=== PATIENT | male | born 1945 | race Caucasian/White ===

== ENCOUNTER 2017-03-21 08:40 | Observation (INO) | payer MEDICARE, BC ==
[~2017-03-21] VITALS: Ht 188 cm; Wt 94.0 kg
[~2017-03-21 08:40] MED LIST: FINA5TAB4 PO; LEVO750T25 PO; SERT-165 PO; TAMS0.4C2 PO
[2017-03-21 08:41] VITALS: Ht 188 cm; Wt 94.0 kg
[2017-03-21] MEDS ORDERED: ONDANSETRON 4 MG INJ IV STA (08:57)
[2017-03-21] MEDS ORDERED: morphine 4 MG/ML VIAL IV STA (08:57)
[2017-03-21] MEDS ORDERED: ACETAMINOPHEN 325 MG TAB PO ONE (09:00)
--- NOTE | 2017-03-21 09:14 | ERA ---
ER Documentation Chief Complaint Date/Time DATE: 03/21/17 TIME: 09:12 Chief Complaint sob since yesterday HPI This is a very pleasant 72-year-old male who presents the emergency room with shortness of breath and chest pain. He describes chest pain to the upper chest just under the sternal notch and he describes it as pleuritic. It started yesterday, slightly gradual in onset and nonmigratory. He notes associated shortness of breath. He was noted to have a low-grade fever upon arrival but denies any cough, nasal congestion. No nausea vomiting or diarrhea, no mid back pain. No recent travel, immobilization or surgery. No family history of DVT or PE. ROS All systems reviewed and are negative except as per history of present illness. Medications Home Meds Reported Medications Meloxicam* (Meloxicam*) 7.5 Mg Tablet, 15 MG PO DAILY, #30 TAB 03/21/17 Sertraline Hcl* (Sertraline Hcl*) 100 Mg Tablet, 100 MG PO DAILY, #30 TAB 07/12/15 Finasteride* (Finasteride*) 5 Mg Tablet, 5 MG PO DAILY, TAB 07/12/15 Tamsulosin Hcl* (Tamsulosin Hcl*) 0.4 Mg Cap.er.24h, 0.4 MG PO DAILY, CAP 07/12/15 Discontinued Scripts Levofloxacin* (Levaquin*) 750 Mg Tablet, 750 MG PO DAILY for 5 Days, TAB Prov:AGUILAR HACKETT 07/18/15 Allergies Allergies: Coded Allergies: No Known Allergy (Unverified , 07/12/15) PMhx/Soc History of Surgery: Yes (R knee sx (15yrs ago); lasik sx, prostate (3yrs ago), eye lid lift) Anesthesia Reaction: Yes Hx Neurological Disorder: Yes Hx Respiratory Disorders: Yes Hx Cardiac Disorders: No Hx Psychiatric Problems: No Hx Miscellaneous Medical Probl: No Hx Alcohol Use: Yes (1 coctail/day) Hx Substance Use: No Hx Tobacco Use: No FmHx Family History: No diabetes Physical Exam Vitals Vital Signs Date Time Temp Pulse Resp B/P Pulse Ox O2 Delivery O2 Flow Rate FiO2 03/21/17 11:01 99.3 03/21/17 08:41 100.5 106 18 133/76 94 Physical Exam General: Well developed, well nourished, no acute distress Head: Normocephalic, atraumatic. Eyes: Pupils equally reactive, EOM intact ENT: Moist mucous membranes Neck: Supple, no lymphadenopathy Respiratory: Lungs clear bilaterally, no distress Cardiovascular: RRR, no murmurs, rubs, or gallops Abdominal: Soft, non-tender, non-distended, no peritoneal signs : Deferred MSK: No edema, no unilateral swelling, 5/5 strength, no pulse deficits Neurologic: Alert and oriented, moving all extremities, normal speech, no focal weakness, no cerebellar signs Skin: No rash Psych: Normal mood Result Diagram: 03/21/17 0903/21/17899 Results 24 hrs Laboratory Tests Test 03/21/17 09:00 03/21/17 09:20 03/21/17 10:43 White Blood Count 9.810^3/ul Red Blood Count 4.9310^6/ul Hemoglobin 15.3g/dl Hematocrit 44.7% Mean Corpuscular Volume 90.7fl Mean Corpuscular Hemoglobin 31.0pg Mean Corpuscular Hemoglobin Concent 34.2g/dl Red Cell Distribution Width 12.2% Platelet Count 55007^3/UL Mean Platelet Volume 10.4fl Neutrophils % 70.9% Lymphocytes % 15.1% Monocytes % 13.3% Eosinophils % 0.2% Basophils % 0.3% Nucleated Red Blood Cells % 0.0/100WBC Neutrophils # 6.910^3/ul Lymphocytes # 1.510^3/ul Monocytes # 1.310^3/ul Eosinophils # 0.010^3/ul Basophils # 0.010^3/ul Nucleated Red Blood Cells # 0.010^3/ul Prothrombin Time 13.6Sec Prothrombin Time Ratio 1.1 INR International Normalized Ratio 1.04 Activated Partial Thromboplast Time 28.2Sec Sodium Level 140mmol/L Potassium Level 4.7mmol/L Chloride Level 106mmol/L Carbon Dioxide Level 25mmol/L Anion Gap 14 Blood Urea Nitrogen 14mg/dl Creatinine 1.04mg/dl Glucose Level 128mg/dl Lactic Acid Level 1.1mmol/L 1.0mmol/L Calcium Level 9.4mg/dl Total Bilirubin 1.3mg/dl Direct Bilirubin 0.00mg/dl Indirect Bilirubin 1.3mg/dl Aspartate Amino Transf (AST/SGOT) 24IU/L Alanine Aminotransferase (ALT/SGPT) 36IU/L Alkaline Phosphatase 71IU/L Troponin I < 0.012ng/ml Total Protein 7.5g/dl Albumin 4.3g/dl Globulin 3.20g/dl Albumin/Globulin Ratio 1.34 Urine Color YELLOW Urine Clarity CLEAR Urine pH 7.0 Urine Specific [place] 1.013 Urine Ketones NEGATIVEmg/dL Urine Nitrite NEGATIVEmg/dL Urine Bilirubin NEGATIVEmg/dL Urine Urobilinogen NEGATIVEmg/dL Urine Leukocyte Esterase NEGATIVELeu/ul Urine Microscopic RBC 0/HPF Urine Microscopic WBC 0/HPF Urine Hemoglobin 1+mg/dL Urine Glucose NEGATIVEmg/dL Urine Total Protein NEGATIVEmg/dl Current Medications Medications (Trade) Dose Ordered Sig/Rajeev Route PRN Reason Start Time Stop Time Status Last Admin Dose Admin Acetaminophen (Tylenol Tab) 650 mg ONCE ONCE PO 03/21/17 09:00 03/21/17 09:01 DC 03/21/17 09:14 Morphine Sulfate (morphine) 4 mg ONCE STAT IV 03/21/17 08:57 03/21/17 09:00 DC 03/21/17 09:15 Ondansetron HCl 4 mg 4 mg ONCE STAT IV 03/21/17 08:57 03/21/17 09:00 DC 03/21/17 09:16 Iohexol 100 ml @ [facility]-MED ONCE .ROUTE 03/21/17 09:29 03/21/17 09:30 DC 03/21/17 10:18 Sodium Chloride (NS) 100 ml @ [facility]-MED ONCE .ROUTE 03/21/17 09:29 03/21/17 09:30 DC 03/21/17 10:18 Ketorolac Tromethamine (Toradol) 15 mg ONCE STAT IV 03/21/17 11:06 03/21/17 11:07 UNV Procedures/MDM EKG, MONITORS, & DIAGNOSTIC IMAGING: Chest x-ray: I reviewed and interpreted a 1 view of the chest Mediastinum: No enlargement Cardiac silhouette: No cardiomegaly Airspace: Clear lung monroy bilaterally without evidence of pneumothorax Bones: No evidence of fracture EKG: I reviewed and interpreted a 12-lead EKG. Rhythm: Normal sinus rhythm Ectopy: None Intervals: No abnormalities ST segments: No elevations or depressions T waves: No contiguous inversions CTPA: IMPRESSION: 1. No central or segmental pulmonary emboli are identified. 2. Bibasilar atelectasis. 3. Moderate sized pericardial effusion. 4. Hepatomegaly with fatty infiltration of the liver. 5. Constipation. 6. Atherosclerotic vascular disease. 7. There are small to moderate amounts of fluid in the anterior mediastinum and middle mediastinum. RPTAT:AAJJ LAB INTERPRETATION: No leukocytosis, negative troponin MEDICAL DECISION MAKING: The patient presents to the emergency room with pleuritic chest pain, shortness of breath and a low-grade fever. Unclear etiology to the patient's symptomatology at this point. Consider viral syndrome, pneumonia. However, given the strong pleuritic component there is some concern for pulmonary embolism. He meets moderate risk criteria therefore d-dimer is not appropriate. CTPA is indicated. I do not believe this is consistent with cardiac etiology though the patient's age problems EKG and troponin. The patient's symptoms are nonexertional, very pleuritic and reproducible for the patient. This speaks against cardiac etiology. No evidence of dissection. ER COURSE: The patient only has mild improvement with morphine. The patient's troponin is negative, EKG is nonischemic. His CT shows no evidence of pulmonary embolism. However, the patient does have pericardial effusion and mediastinal fluid. Unclear significance of this finding. Consider pericarditis. The patient will be given an NSAID. No signs or symptoms concerning for mediastinitis and no indication for antibiotics currently. The patient's fever has defervesced he has no significant leukocytosis. Consider viral response at this time. Cultures are pending. Also unfortunately consider malignancy given the low- grade fever and pericardial effusion. For these reasons I strongly recommend inpatient hospitalization for further evaluation, echocardiogram and consideration for PET scan or further workup. I kept the patient and/or family informed of laboratory and diagnostic imaging results throughout the emergency room course. DISPOSITION PLAN: Telemetry admission for chest pain, pericardial effusion CONSULTATION: Accepting care team and consultations: I discussed the current laboratory data, diagnostic imaging and emergency care provided. Admitting team: Dr. Kulkarni Admitting team indication: Insurance directed Departure Diagnosis: Primary Impression: Shortness of breath Additional Impressions: Chest pain Qualified Code: R07.1 - Chest pain on breathing Pericardial effusion Condition: Stable MARY BROWNE MD Mar 21, 2017 09:14
[2017-03-21 09:26] LABS: BASOPHILS % 0.3 % (0.0-2.0); EOSINOPHILS % 0.2 % (0.0-7.0); HEMATOCRIT 44.7 % (42.0-52.0); HEMOGLOBIN 15.3 g/dl (14.0-18.0); LYMPHOCYTES # 1.5 10^3/ul (0.8-2.9); LYMPHOCYTES % 15.1 % (15.0-51.0); MEAN CORPUSCULAR HGB CONC 34.2 g/dl (32.0-37.0); MEAN CORPUSCULAR VOLUME 90.7 fl (82.0-101.0); MEAN PLATELET VOLUME 10.4 fl (7.4-10.4); MONOCYTE # 1.3 10^3/ul (0.3-0.9); MONOCYTES % 13.3 % (0.0-11.0); NEUTROPHIL # 6.9 10^3/ul (1.6-7.5); NEUTROPHILS % 70.9 % (39.0-77.0); PLATELET COUNT 173 10^3/UL (140-415); RED BLOOD COUNT 4.93 10^6/ul (4.70-6.10); RED CELL DISTRIBUTION WIDTH 12.2 % (11.5-14.5); WHITE BLOOD COUNT 9.8 10^3/ul (4.8-10.8)
[2017-03-21] MEDS ORDERED: IOHEXOL 100 ML ONE (09:29)
[2017-03-21] MEDS ORDERED: SOD CHLORIDE 0.9% 100 ML ONE (09:29)
[2017-03-21 09:42] LABS: INR 1.04; PROTIME 13.6 Sec (12.2-14.2); PT RATIO 1.1
[2017-03-21 09:43] LABS: ALANINE AMINOTRANSFERASE 36 IU/L (13-69); ALBUMIN 4.3 g/dl (3.3-4.9); ALBUMIN/GLOBULIN RATIO 1.34; ALKALINE PHOSPHATASE 71 IU/L (42-121); ANION GAP 14 (8-16); ASPARTATE AMINO TRANSFERASE 24 IU/L (15-46); BILIRUBIN,INDIRECT 1.3 mg/dl (0-1.1); BILIRUBIN,TOTAL 1.3 mg/dl (0.2-1.3); BLOOD UREA NITROGEN 14 mg/dl (7-20); CALCIUM 9.4 mg/dl (8.4-10.2); CARBON DIOXIDE 25 mmol/L (21-31); CHLORIDE 106 mmol/L (97-110); CREATININE 1.04 mg/dl (0.61-1.24); GLUCOSE 128 mg/dl (70-220); PARTIAL THROMBOPLASTIN TIME 28.2 Sec (25.0-35.0); POTASSIUM 4.7 mmol/L (3.5-5.1); SODIUM 140 mmol/L (135-144); TOTAL PROTEIN 7.5 g/dl (6.1-8.1)
--- NOTE | 2017-03-21 09:43 | RADRPT ---
PROCEDURE: XR Chest. CLINICAL INDICATION: Difficulty breathing. TECHNIQUE: Single frontal view of the chest was obtained. COMPARISON: None FINDINGS: The soft tissues are generous. Monitoring electrodes project across the chest. There are degenerati ve osteophytes in the thoracic spine. The heart is mildly enlarged. The cardiomediastinal silhouett e and hilar structures are normal. The pulmonary vasculature is normal.. There is a left-sided aort a. There is a suboptimal inspiration with some compressive atelectasis in the left lower lobe. No pu lmonary nodule or acute infiltrate is identified. The right costophrenic angle is normal. The left costophrenic angle is obscured. IMPRESSION: 1. Suboptimal inspiration with compressive atelectasis in the left lower lobe partially obscuring th e left costophrenic angle. 2. Spondylosis of the thoracic spine. 3. There is no evidence of active cardiopulmonary disease. RPTAT:AAJJ Physician Taylor Date Time Electronically viewed and signed by Physician Taylor on 03/21/2017 09:43 ARI/
[2017-03-21 09:47] LABS: ADD UMIC YES; UR ASCORBIC ACID NEGATIVE (NEGATIVE); UR BILIRUBIN (Dip) NEGATIVE (NEGATIVE); UR BLOOD (Dip) 1+ mg/dL (NEGATIVE); UR CLARITY CLEAR (CLEAR); UR COLOR YELLOW (YELLOW); UR GLUCOSE (Dip) NEGATIVE (NEGATIVE); UR KETONES (Dip) NEGATIVE (NEGATIVE); UR LEUKOCYTE ESTERASE (Dip) NEGATIVE Leu/ul (NEGATIVE); UR NITRITE (Dip) NEGATIVE (NEGATIVE); UR RBC 0 /HPF (0-5); UR SPECIFIC GRAVITY (Dip) 1.013 (1.003-1.030); UR TOTAL PROTEIN (Dip) NEGATIVE (NEGATIVE); UR UROBILINOGEN (Dip) NEGATIVE (NEGATIVE)
[2017-03-21 09:54] LABS: TROPONIN-I < 0.012 ng/ml (0.00-0.12)
--- NOTE | 2017-03-21 10:45 | RADRPT ---
PROCEDURE: CTA Chest. CLINICAL INDICATION: 72-year-old male to rule out pulmonary embolus. TECHNIQUE: The study was performed utilizing a [employer] multidetector [facility]. Direct spiral 1 mm axial sections were obtained from the thoracic inlet to the upper abdomen with the use of 100 cc of Omnipaque 350 nonionic intravenous contrast material and reformatted at 3 mm. Coronal reformations were obtained. The images were reviewed on a PACS workstation. CTDI: 15.21 and DLP: 986. One or more of the following dose reduction techniques were used: - Automated exposure control. - Adjustment of the mA and/or kV according to patient size. Use of iterative reconstruction technique. COMPARISON: No prior studies are available for comparison. FINDINGS: There are degenerative osteophytes in the lower cervical and thoracic spine. There are per ipheral ground-glass infiltrates and intermixed subsegmental atelectasis in the right and left lower lobes. There is consolidative infiltrate/atelectasis in the left lower lobe. No pleural effusion is identified. There is a moderate-sized pleural effusion. The heart is normal in size. The vocal cords, trachea and thyroid gland are normal. The great vessels of the superior mediastinum are unremarkable. There are vascular calcifications in the aortic arch. There is vascular ectasia o f the proximal common carotid arteries. The subclavian arteries are patent. The vertebral arteries a re patent. The main pulmonary artery and pulmonary artery outflow tracts are normal. There is a smal l amount of fluid in the anterior mediastinum. The stomach is unremarkable allowing for incomplete distension. The small bowel loops are normal. Th ere is fecal material in the splenic flexure, transverse colon and hepatic flexure. No enlarged retroperitoneal, mesenteric or periportal lymph nodes are identified. No enlarged suprac lavicular hilar or mediastinal lymph nodes are noted. The abdominal aorta is normal in size. The visible portions of the kidneys and adrenal glands are normal. The spleen is unremarkable where visualized. There is fatty infiltration of the liver which measures 17.2 cm AP. The gallbladder and gallbladder wall are normal.. IMPRESSION: 1. No central or segmental pulmonary emboli are identified. 2. Bibasilar atelectasis. 3. Moderate sized pericardial effusion. 4. Hepatomegaly with fatty infiltration of the liver. 5. Constipation. 6. Atherosclerotic vascular disease. 7. There are small to moderate amounts of fluid in the anterior mediastinum and middle mediastinum. RPTAT:AAJJ Physician Taylor Date Time Electronically viewed and signed by Ruben Ruiz Physician on 03/21/2017 10:45 JM/
[2017-03-21 11:01] VITALS: TEMP 99.3
[2017-03-21] MEDS ORDERED: KETOROLAC 15 MG INJ IV STA (11:06)
[2017-03-21] MEDS ORDERED: MELO-216 PO (11:08)
[2017-03-21] MEDS ORDERED: ACETAMINOPHEN 325 MG TAB PO PRN (11:30)
[2017-03-21] MEDS ORDERED: ONDANSETRON 4 MG INJ IV PRN (11:30)
--- NOTE | 2017-03-21 13:28 | HP ---
Date/Time of Note Date/Time of Note DATE: 03/21/17 TIME: 13:05 Assessment/Plan VTE Prophylaxis VTE Prophylaxis Intervention: SCD's Assessment/Plan Assessment/Plan 72 yo M presented with SOB found to have pericardial effusion and mediastinal fluid etio unknown. Consider viral etio no evidence of tamponade at this time based on EKG and clinical syndrome -check TSH, ESR, BNP -NSAIDs/colchicine -defer KEELY pending cardiology eval -no hx cancer, not ESRD and BUN ok, no hx autoimmune/connective tissue disease, not on meds typically associated with pericardial effusion discussed mediastinal imaging with radiologist. no evidence of mass. No recent mediastinal procedures may need to consider fluid sampling though defer until after cardiology evaluation is complete HPI/ROS Admit Date/Time Admit Date/Time Hx of Present Illness 72 yo with pmhx BPH, depression, presents with 1 day of SOB. Pt states yesterday he had a low grade fever and noticed some SOB. His SOB progressed, was worsened by deep breaths which is what prompted him to come to the ED. 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 no electrical alterans, no evidence of low voltage Labs Result Diagram: 03/21/1789903/21/17899 ANNAMARIE MARTINEZ MD Mar 21, 2017 13:20
[2017-03-21 13:30] VITALS: PULSE 77
[2017-03-21] MEDS ORDERED: NACL 0.9% 3 ML SYG IV SCH (13:30)
[2017-03-21] MEDS: IBUPROFEN 600 MG TAB PO SCH ×2 (14:43→21:08)
[2017-03-21 15:45] VITALS: BP 121/69; RESP 19
[2017-03-21 15:58] LABS: CK-MB 0.29 ng/ml (0.0-2.4)
[2017-03-21 16:05] VITALS: PULSE 73
[2017-03-21 16:27] LABS: C-REACTIVE PROTEIN 6.5 mg/dl (0.0-0.9)
[2017-03-21 20:00] VITALS: BP 130/68; RESP 16
[2017-03-21 20:03] VITALS: PULSE 72
[2017-03-21] MEDS: COLCHICINE 0.6 MG TAB PO SCH (21:08)
[2017-03-22] VITALS (8 sets, daily range): BP systolic 115–141; BP diastolic 71–78; PULSE 58–70; RESP 16–19
[2017-03-22] MEDS: IBUPROFEN 600 MG TAB PO SCH (06:11)
[2017-03-22] MEDS ORDERED: FINASTERIDE 5 MG TAB PO SCH (09:00)
[2017-03-22] MEDS ORDERED: SERTRALINE 100 MG TAB PO SCH (09:00)
[2017-03-22] MEDS ORDERED: INFLUENZA VIRUS VACCINE 0.5 ML SYG IM* ONE (09:00)
[2017-03-22] MEDS ORDERED: ENOXAPARIN 40 MG/0.4 ML SYG SC SCH (09:00)
[2017-03-22] MEDS ORDERED: TAMSULOSIN (SR) 0.4 MG CAP PO SCH (09:00)
[2017-03-22] MEDS: COLCHICINE 0.6 MG TAB PO SCH (09:22)
[2017-03-22 09:23] LABS: BASOPHILS % 0.4 % (0.0-2.0); EOSINOPHILS # 0.2 10^3/ul (0.0-0.5); EOSINOPHILS % 2.8 % (0.0-7.0); HEMATOCRIT 40.1 % (42.0-52.0); HEMOGLOBIN 13.2 g/dl (14.0-18.0); LYMPHOCYTES # 1.5 10^3/ul (0.8-2.9); LYMPHOCYTES % 19.7 % (15.0-51.0); MEAN CORPUSCULAR HEMOGLOBIN 30.4 pg (29.0-33.0); MEAN CORPUSCULAR HGB CONC 32.9 g/dl (32.0-37.0); MEAN CORPUSCULAR VOLUME 92.4 fl (82.0-101.0); MEAN PLATELET VOLUME 10.9 fl (7.4-10.4); MONOCYTE # 1.1 10^3/ul (0.3-0.9); MONOCYTES % 15.3 % (0.0-11.0); NEUTROPHIL # 4.6 10^3/ul (1.6-7.5); NEUTROPHILS % 61.5 % (39.0-77.0); PLATELET COUNT 147 10^3/UL (140-415); RED BLOOD COUNT 4.34 10^6/ul (4.70-6.10); RED CELL DISTRIBUTION WIDTH 12.3 % (11.5-14.5); WHITE BLOOD COUNT 7.5 10^3/ul (4.8-10.8)
[2017-03-22 09:47] LABS: CALCIUM 8.8 mg/dl (8.4-10.2); CREATININE 0.98 mg/dl (0.61-1.24); POTASSIUM 4.5 mmol/L (3.5-5.1)
--- NOTE | 2017-03-22 13:17 | CONS ---
Date/Time of Note Date/Time of Note DATE: 03/22/17 TIME: 13:07 Assessment/Plan Assessment/Plan Chief Complaint/Hosp Course Pericardial effusion/pericarditis: Moderate sized by echo and CT. No e/o echocardiographic or clinical tamponade. Etiology is likely viral pericarditis as also had fevers but the possibility of malignancy at his age cant be ruled out. He is now asymptomatic on ibuprofen and colchicine. He will need outpt follow-up to evaluate for progression of the effusion. -ok for d/c -continue ibuprofen TID for at least one week assuming symptoms remain resolved -continue colchicine 0.6,mg BID for 3 months -pt to see me in the office in 3 days for repeat echo and evaluation Problems: Consultation Date/Type/Reason Admit Date/Time Date of Consultation: Mar 22, 2017 Type of Consultation: Cardiology Reason for Consultation Pericardial effusion. Referring Provider: ANNAMARIE MARTINEZ MD Hx of Present Illness 72 yo M with a h/o depression, who presented with chest pain and SOB. The pt started having chills 2 nights ago and started to feel throat pain with deep inspiration. This was worse when he was laying flat and he had to sit up to feel better. He also was having some mild SOB. 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 No fevers or sick contacts. He has not been hit in the chest. Since coming to the ED, he was started on ibuprofen and colchicine for possible pericarditis as there was a moderate sized pericardial effusion on CT. He now denies SOB or throat pain. Would like to go home. per HPI Social History Smoking Status: Current some day smoker Exam/Review of Systems Vital Signs Vitals Vital Signs Date Time Temp Pulse Resp B/P Pulse Ox O2 Delivery O2 Flow Rate FiO2 03/22/17 12:11 98.3 66 19 119/71 95 03/22/17 04:00 Room Air Intake and Output 03/21/17 03/21/17 03/22/17 15:00 23:00 07:00 Intake Total 500 ml 250 ml Balance 500 ml 250 ml Exam Constitutional: alert, oriented Psych: nl mood/affect, no complaints Head: atraumatic, normocephalic Neck: jvd (8cm), supple Respiratory: clear to auscultation, No crackles/rales Cardiovascular: regular rate and rhythm, No edema, No rub, No systolic murmur Gastrointestinal: non-tender, soft, No distended Musculoskeletal: nl extremities to inspection Neurological: nl mental status, nl speech Results sinus, no ST changes, no e/o pericarditis Result Diagram: 03/22/1781703/22/17817 Results 24 hrs Laboratory Tests Test 03/21/17 14:45 03/21/17 14:46 03/22/17 08:18 Lactic Acid Level 1.0 Erythrocyte Sedimentation Rate 18 Creatine Kinase 90 Creatinine Kinase MB (Mass) 0.29 C-Reactive Protein 6.5 H B-Type Natriuretic Peptide 144 H Thyroid Stimulating Hormone (TSH) 1.330 White Blood Count 7.5 # Red Blood Count 4.34 L Hemoglobin 13.2 L Hematocrit 40.1 L Mean Corpuscular Volume 92.4 Mean Corpuscular Hemoglobin 30.4 Mean Corpuscular Hemoglobin Concent 32.9 Red Cell Distribution Width 12.3 Platelet Count 147 Mean Platelet Volume 10.9 H Neutrophils % 61.5 Lymphocytes % 19.7 Monocytes % 15.3 H Eosinophils % 2.8 Basophils % 0.4 Nucleated Red Blood Cells % 0.0 Neutrophils # 4.6 Lymphocytes # 1.5 Monocytes # 1.1 H Eosinophils # 0.2 Basophils # 0.0 Nucleated Red Blood Cells # 0.0 Sodium Level 139 Potassium Level 4.5 Chloride Level 105 Carbon Dioxide Level 28 Anion Gap 11 Blood Urea Nitrogen 18 Creatinine 0.98 Glucose Level 108 Calcium Level 8.8 Medications Medications Current Medications Enoxaparin Sodium (Lovenox) 40 mg DAILY SC Last administered on 03/22/17 09:24 ; Admin Dose 40 MG; Start 03/22/17 at 09:00 Finasteride (Proscar) 5 mg DAILY PO Last administered on 03/22/17 09:23; Admin Dose 5 MG; Start 03/22/17 at 09:00 Sertraline HCl (Zoloft) 100 mg DAILY PO Last administered on 03/22/17 09:22; Admin Dose 100 MG; Start 03/22/17 at 09:00 Tamsulosin HCl (Flomax) 0.4 mg DAILY PO Last administered on 03/22/17 09:22; Admin Dose 0.4 MG; Start 03/22/17 at 09:00 Colchicine (Colchicine) 0.6 mg BID PO Last administered on 03/22/17 09:22; Admin Dose 0.6 MG; Start 03/21/17 at 21:00 Ibuprofen (Motrin) 600 mg Q8 PO Last administered on 03/22/17 06:11; Admin Dose 600 MG; Start 03/21/17 at 14:00 JUAN RAMON EDWARDS Mar 22, 2017 13:17
[2017-03-22] MEDS ORDERED: IBUP-1542 PO (13:56)
--- NOTE | 2017-03-22 13:57 | PDOCDIS ---
Discharge Instructions CONDITION Patient Condition: Stable HOME CARE INSTRUCTIONS: Special Diet: REG DIET. FOLLOW UP/APPOINTMENTS Follow-up Plan Follow up with the telephone supervisor Dr Varghese on Thursday Office Address [address] [place] [address]. [address] [place] [address] Office ANNAMARIE MARTINEZ MD Mar 22, 2017 13:57
--- NOTE | 2017-03-22 13:59 | DS ---
Date/Time of Note Date/Time of Note DATE: 03/22/17 TIME: 13:58 Discharge Summary Admission/Discharge Info Admit Date/Time Mar 21, 2017 at 11:15 Discharge Date/Time Discharge Diagnosis pericardial effusion Patient Condition: Good Consults cardiology Procedures CTA chest 10.7 IMPRESSION: 1. No central or segmental pulmonary emboli are identified. 2. Bibasilar atelectasis. 3. Moderate sized pericardial effusion. 4. Hepatomegaly with fatty infiltration of the liver. 5. Constipation. 6. Atherosclerotic vascular disease. 7. There are small to moderate amounts of fluid in the anterior mediastinum and middle mediastinum. 10.8 TTE: prelim read as moderate pericardial effusion Chemistry Test 03/21/17 09:00 03/21/17 14:45 03/21/17 14:46 03/22/17 08:18 Total Bilirubin 1.3mg/dl (0.2-1.3) Direct Bilirubin 0.00mg/dl (0.00-0.20) Indirect Bilirubin 1.3mg/dl (0-1.1) Aspartate Amino Transf (AST/SGOT) 24IU/L (15-46) Alanine Aminotransferase (ALT/SGPT) 36IU/L (13-69) Alkaline Phosphatase 71IU/L (42-121) Troponin I < 0.012ng/ml (0.00-0.12) Total Protein 7.5g/dl (6.1-8.1) Albumin 4.3g/dl (3.3-4.9) Globulin 3.20g/dl (1.3-3.2) Albumin/Globulin Ratio 1.34 Lactic Acid Level 1.0mmol/L (0.5-2.0) Creatine Kinase 90IU/L (23-200) Creatinine Kinase MB (Mass) 0.29ng/ml (0.0-2.4) C-Reactive Protein 6.5mg/dl (0.0-0.9) B-Type Natriuretic Peptide 144PG/ML (0-125) Thyroid Stimulating Hormone (TSH) 1.330MIU/L (0.465-4.680) Sodium Level 139mmol/L (135-144) Potassium Level 4.5mmol/L (3.5-5.1) Chloride Level 105mmol/L (97-110) Carbon Dioxide Level 28mmol/L (21-31) Anion Gap 11 (8-16) Blood Urea Nitrogen 18mg/dl (7-20) Creatinine 0.98mg/dl (0.61-1.24) Glucose Level 108mg/dl (70-220) Calcium Level 8.8mg/dl (8.4-10.2) Hx of Present Illness 72 yo with pmhx BPH, depression, presents with 1 day of SOB. Pt states yesterday he had a low grade fever and noticed some SOB. His SOB progressed, was worsened by deep breaths which is what prompted him to come to the ED. Pt denies any recent weight loss or joint swelling Hospital Course Pt seen by cardiology on 03.22. Affirmed presence of effusion with TTE. Lab workup only notable for CRP mildly elevated, highly nonspecific. Per deputy insurance commissioner, clinical scenario consistent with viral pericarditis though other etios cannot be ruled out. Pt to be discharged on anti inflammatories and f/u with deputy insurance commissioner this Thursday for repeat TTE and further eval. Home Meds Reported Medications Meloxicam* (Meloxicam*) 7.5 Mg Tablet, 15 MG PO DAILY, #30 TAB 03/21/17 Sertraline Hcl* (Sertraline Hcl*) 100 Mg Tablet, 100 MG PO DAILY, #30 TAB 07/12/15 Finasteride* (Finasteride*) 5 Mg Tablet, 5 MG PO DAILY, TAB 07/12/15 Tamsulosin Hcl* (Tamsulosin Hcl*) 0.4 Mg Cap.er.24h, 0.4 MG PO DAILY, CAP 07/12/15 Discontinued Scripts Levofloxacin* (Levaquin*) 750 Mg Tablet, 750 MG PO DAILY for 5 Days, TAB Prov:AGUILAR HACKETT S. 07/18/15 Follow-up Plan Follow up with the deputy insurance commissioner Dr Varghese on Thursday Office Address [address] [facility] [place] [address] Office Primary Care Provider Not On Staff Doctor Pending Labs Laboratory Tests Test 03/21/17 14:45 03/21/17 14:46 03/22/17 08:18 Lactic Acid Level 1.0mmol/L (0.5-2.0) Erythrocyte Sedimentation Rate 18mm/Hr (0-20) Creatine Kinase 90IU/L (23-200) Creatinine Kinase MB (Mass) 0.29ng/ml (0.0-2.4) C-Reactive Protein 6.5mg/dl (0.0-0.9) B-Type Natriuretic Peptide 144PG/ML (0-125) Thyroid Stimulating Hormone (TSH) 1.330MIU/L (0.465-4.680) White Blood Count 7.510^3/ul (4.8-10.8) Red Blood Count 4.3410^6/ul (4.70-6.10) Hemoglobin 13.2g/dl (14.0-18.0) Hematocrit 40.1% (42.0-52.0) Mean Corpuscular Volume 92.4fl (82.0-101.0) Mean Corpuscular Hemoglobin 30.4pg (29.0-33.0) Mean Corpuscular Hemoglobin Concent 32.9g/dl (32.0-37.0) Red Cell Distribution Width 12.3% (11.5-14.5) Platelet Count 09368^3/UL (140-415) Mean Platelet Volume 10.9fl (7.4-10.4) Neutrophils % 61.5% (39.0-77.0) Lymphocytes % 19.7% (15.0-51.0) Monocytes % 15.3% (0.0-11.0) Eosinophils % 2.8% (0.0-7.0) Basophils % 0.4% (0.0-2.0) Nucleated Red Blood Cells % 0.0/100WBC (0.0-0.0) Neutrophils # 4.610^3/ul (1.6-7.5) Lymphocytes # 1.510^3/ul (0.8-2.9) Monocytes # 1.110^3/ul (0.3-0.9) Eosinophils # 0.210^3/ul (0.0-0.5) Basophils # 0.010^3/ul (0.0-0.1) Nucleated Red Blood Cells # 0.010^3/ul (0.0-0.0) Sodium Level 139mmol/L (135-144) Potassium Level 4.5mmol/L (3.5-5.1) Chloride Level 105mmol/L (97-110) Carbon Dioxide Level 28mmol/L (21-31) Anion Gap 11 (8-16) Blood Urea Nitrogen 18mg/dl (7-20) Creatinine 0.98mg/dl (0.61-1.24) Glucose Level 108mg/dl (70-220) Calcium Level 8.8mg/dl (8.4-10.2) Copies To: CC: JUAN RAMON VARGHESE ELLEN MD Mar 22, 2017 13:59
[2017-03-22] MEDS ORDERED: COLC0.6T6 PO (14:01)
--- NOTE | 2017-03-23 10:05 | RADRPT ---
Echocardiogram Report Patient Name: KEAGAN MORALES Gender: Male Date: 1945 Study Date: 22-Mar-2017 Manager Intern: [facility] Location: [id number] Ref. Physician: THA BARRAGAN Quality: Adequate Procedures: Transthoracic echocardiogram with complete 2D, M-Mode, and doppler examination. Indications: Evaluate pericardial effusion. 2D/M Mode Doppler Measurement Value Normal Ranges Measurement Value Normal Ranges LVIDd 2D 4.0 3.5 - 5.6 cm AV Peak Manuel 1.3 m/sec LVIDs 2D 2.7 2.1 - 4.1 cm AV Peak PG 7.0 mmHg FS 2D 32.8 % LVOT Peak Manuel 1.2 m/sec LVPWd 2D 1.3 0.6 - 1.1 cm LVOT Peak PG 6.0 mmHg IVSd 2D 1.3 0.6 - 1.1 cm MV E Peak Manuel 0.8 m/sec IVS/LVPW 2D 1.0 MV A Peak Manuel 1.0 m/sec AoR Diam 2D 2.6 2.0 - 3.7 cm MV E/A 0.8 LA/Ao 2D 2 0 - 1 MV Decel Time 275 msec EDV 2D 63.5 cm3 MV E/A 0.8 ESV 2D 19.2 cm3 LA Dimen 2D 4.1 2.3 - 4.0 cm Findings Left Ventricle: Normal left ventricular systolic function. Normal left ventricular cavity size. Mild concentric left ventricular hypertrophy. Ejection fraction is visually estimated at 65 %. Tissue Doppler/Mitral Doppler indices are consistent with impaired relaxation (Stage I diastolic dysfunction). Right Ventricle: Normal right ventricular size. Normal right ventricular systolic function. Left Atrium: There is mild enlargement of left atrium. Right Atrium: The right atrium is normal in size. Mitral Valve: Mild mitral leaflet calcification. Mild mitral annular calcification. Trace mitral regurgitation. Aortic Valve: Aortic sclerosis without stenosis. Aortic cusps appear mildly calcified. No aortic regurgitation. Tricuspid Valve: Normal appearance of the tricuspid valve. Unable to obtain RVSP due to minimal presence of tricuspid regurgitation. There is trace tricuspid regurgitation. Pulmonic Valve: Normal pulmonic valve appearance. There is mild to moderate pulmonic regurgitation. Pericardium: Small to moderate sized pericardial effusion mostly inferolateral and anterolateral measuring up to 1.7 cm but also seen anteriorly in subcostal views up to 1.8cm. No echocardiographic evidence of tamponade. Aorta: Normal aortic root. IVC: Normal size and normal respiratory collapse consistent with normal right atrial pressure. Conclusions 1.Small to moderate sized pericardial effusion mostly inferolateral and anterolateral measuring up to 1.7 cm but also seen anteriorly in subcostal views up to 1.8cm. No echocardiographic evidence of tamponade. 2.Normal left ventricular systolic function. Normal left ventricular cavity size. Mild concentric left ventricular hypertrophy. Ejection fraction is visually estimated at 65 %. Tissue Doppler/Mitral Doppler indices are consistent with impaired relaxation (Stage I diastolic dysfunction). 3.No significant valvular stenosis or regurgitation seen. 4.Unable to obtain RVSP due to minimal presence of tricuspid regurgitation. Normal size and normal respiratory collapse consistent with normal right atrial pressure. Electronically Signed By: Sony Varghese 23-Mar-2017 10:05:19 -0700 Patient Name: KEAGAN MORALES Study Date: 22-Mar-2017 [id number]
== END 2017-03-22 14:40 | disposition home or self-care (01) ==
LOC: E/R 08:40 → MS4 11:15 → UNDOADMOB 13:13 → MS4 13:13 → INTOOBSV 13:13
PROVIDERS: ADMIT Internal Medicine; ATTEND Internal Medicine
DX: I31.3 Pericardial effusion (noninflammatory) (principal); J98.11 Atelectasis; K76.0 Fatty (change of) liver, not elsewhere classified; I70.90 Unspecified atherosclerosis
CPT/HCPCS: 36415; 71010; 71275; 80048; 80053; 81001; 82550; 82553; 83605; 83880; 84443; 84484; 85025; 85610; 85651; 85730; 86140; 87040; 87086; 90686; 93005; 93306; 96374; 96375; 99285; G0378; J1650; J1885; J2270; J2405; Q9967; 99217

== ENCOUNTER 2017-08-20 05:21 | Inpatient (IN) | END 2017-08-21 10:35 | disposition home or self-care (01) | DRG 483 ==